=== PATIENT | male | born 1945 | race Two or more races ===

== ENCOUNTER 2020-04-30 12:12 | Outpatient (CLI) | payer OTHER ==
[~2020-04-30 12:12] MED LIST: NORVASC5 MG PO
== END 2020-04-30 12:18 | disposition home or self-care (01) ==
LOC: OFIC 805 12:12
PROVIDERS: ATTEND Otolaryngology
DX: H74.8X3 Other specified disorders of middle ear and mastoid, bilateral (principal); H90.3 Sensorineural hearing loss, bilateral

== ENCOUNTER 2021-01-09 10:35 | Outpatient (CLI) | payer OTHER | END 2021-01-09 10:40 | disposition home or self-care (01) | LOC: LAB 10:35 | PROVIDERS: ATTEND Internal Medicine Cardiovascular Disease | DX: R10.9 Unspecified abdominal pain (principal) ==

== ENCOUNTER → 2024-08-10 08:49 | Outpatient (CLI) | payer OTHER | END | disposition home or self-care (01) | LOC: NUCLEAR 08:49 | PROVIDERS: ATTEND Internal Medicine Cardiovascular Disease | DX: K80.20 Calculus of gallbladder without cholecystitis without obstruction (principal) | CPT/HCPCS: 78227; A9537 ==

== ENCOUNTER 2025-09-28 09:29 | Outpatient (CLI) | payer OTHER | END 2025-09-28 09:30 | disposition home or self-care (01) | LOC: NUCLEAR 09:29 | PROVIDERS: ATTEND Internal Medicine Gastroenterology | DX: K82.9 Disease of gallbladder, unspecified (principal) | CPT/HCPCS: 78227; A9537 ==